=== PATIENT | male | born 1940 | race Caucasian/White ===

== ENCOUNTER 2017-05-12 10:07 | Emergency (ER) | payer MEDICARE, OTHER ==
[2017-05-12] MEDS ORDERED: Sodium Chloride 0.9% 1000 ML 1,000 ML IV STA (10:21)
[2017-05-12 10:22] VITALS: BP 113/59; PULSE 60; O2SAT 94
[2017-05-12] MEDS ORDERED: Sodium Chloride 0.9% 1000 ML 1,000 ML ONE (10:25)
[2017-05-12 10:47] LABS: ANION GAP 16.9 MEQ/L (5-15); BILIRUBIN,TOTAL 0.5 mg/dL (0.2-1.0); Carbon Dioxide 23.2 mEq/L (21-32); MAGNESIUM 2.1 mg/dL (1.8-2.4); Potassium 4.1 mEq/L (3.5-5.1); Total Protein 7.5 gm/dL (6.4-8.2)
[2017-05-12 10:51] LABS: BASOPHIL % 0.3 % (0.0-0.4); Eosinophil % 5.1 % (0.00-5.0); Granulocytes % 49.3 % (36.0-66.0); Lymphocytes % 35.1 % (24.0-44.0); Mean Corpuscular Hemoglobin 30.4 pg (26-32); Mean Platelet Volume 10.7 fl (6-9.5); Monocytes % 10.2 % (0.0-12.0); Platelet Count 211 K/mm3 (150-450); White Blood Count 7.2 K/mm3 (4.0-10.5)
--- NOTE | 2017-05-12 10:55 | ERPHSYRPT ---
- History of Present Illness Time Seen by Provider: 05/12/17 10:52 Source: patient, EMS Exam Limitations: no limitations Patient Subjective Stated Complaint: kareem had syncopal episode at [facility], unsure he he blacked out but he doesnt remember things during but he knows he did not fall Triage Nursing Assessment: pt alert and oriented x3, lung sounds clear, pulses equal bialteral radius, bowel sounds present x4, skin warm dry and intact. no injuries noted Physician History: patient had syncopal episode at [facility], unsure he he blacked out but he does not remember things during but he knows he did not fall, has one episode of nausea en route to ER Timing/Duration: today Associated Symptoms: nausea Allergies/Adverse Reactions: terazosin HCl [From Hytrin] Allergy (Mild, Verified 05/12/17 10:16) Fainting lisinopril Allergy (Verified 05/12/17 10:21) Tuberculin,Old Sk *RETIRED-11/05/12 [Tuberculin,Old Skin Test] Allergy ( Verified 05/12/17 10:16) "DOCTOR SAID MY ARM WOULD FALL OFF". Home Medications: Aspirin 81 mg PO DAILY 06/22/12 [History] Omeprazole 20 mg PO DAILY 06/22/12 [History] Simvastatin 10 mg [Zocor 10MG] 10 mg PO HS 06/22/12 [History] Cholestyramine Light 4 gm [QUESTRAN Light 4 GM Packet] 8 gm PO HS [History] Diphenoxylate HCl/Atropine [Lomotil] 1 udtab PO QIDPRN PRN 10/24/14 [ History] Escitalopram Oxalate 10 mg [Lexapro 10 MG] 10 mg PO HS 10/24/14 [History] Propafenone HCl 150 mg [Rythmol 150 mg] 150 mg PO BID 11/30/14 [History] Finasteride 5 mg [Proscar 5 MG] 5 mg DAILY 05/12/17 [History] Metoprolol Tartrate 25 mg [Lopressor 25MG Tab] 25 mg DAILY 05/12/17 [ History] Hx Tetanus, Diphtheria Vaccination/Date Given: Yes Hx Influenza Vaccination/Date Given: Yes Hx Pneumococcal Vaccination/Date Given: Yes Immunizations Up to Date: Yes - Review of Systems Constitutional: No Fever, No Chills Eyes: No Symptoms Ears, Nose, & Throat: No Symptoms Respiratory: No Cough, No Dyspnea Cardiac: Syncope, No Chest Pain, No Edema Abdominal/Gastrointestinal: Nausea, No Abdominal Pain, No Vomiting, No Diarrhea Genitourinary Symptoms: No Dysuria Musculoskeletal: No Back Pain, No Neck Pain Skin: No Rash Neurological: No Dizziness, No Focal Weakness, No Sensory Changes Psychological: No Symptoms Endocrine: No Symptoms All Other Systems: Reviewed and Negative - Past Medical History Pertinent Past Medical History: Yes Neurological History: TIA ENT History: Cataracts Cardiac History: Arrhythmia, Coronary Artery Disease, High Cholesterol, Hypertension Respiratory History: No Pertinent History Endocrine Medical History: No Pertinent History Musculoskeletal History: Arthritis, Osteoarthritis GI Medical History: GERD, Gallbladder Disease, Irritable Bowel History: No Pertinent History Psycho-Social History: Depression Male Reproductive Disorders: Prostate Problems Other Medical History: KIDNEY STONES . STATED HE HAS NOT HAD TB; 40 YEARS AGO WAS EXPOSED AND TOOK 3 TABLETS EVERY DAY FOR A YEAR. NE KNEE REPLACEMENT. PACEMAKER - Past Surgical History Past Surgical History: Yes Neuro Surgical History: No Pertinent History Cardiac: Cardiac Catheterization, Pacemaker Respiratory: No Pertinent History Gastrointestinal: Cholecystectomy Genitourinary: No Pertinent History Musculoskeletal: Orthopedic Surgery Male Surgical History: No Pertinent History Other Surgical History: SKIN CANCER REMOVED. NE KNEES. PACEMAKER. CATH WITHOUT STENTS - Social History Smoking Status: Former smoker How long have you smoked: 9 Exposure to second hand smoke: No Drug Use: none Patient Lives Alone: No - Nursing Vital Signs Nursing Vital Signs: Initial Vital Signs Temperature 97.8 F 05/12/17 10:08 Pulse Rate 60 05/12/17 10:08 Respiratory Rate 24 05/12/17 10:08 Blood Pressure 113/59 05/12/17 10:08 O2 Sat by Pulse Oximetry 94 L 05/12/17 10:08 Pain Scale Pain Intensity 0 - Physical Exam General Appearance: no apparent distress, alert Eye Exam: PERRL/EOMI, eyes nml inspection Ears, Nose, Throat Exam: normal ENT inspection, TMs normal, pharynx normal, moist mucous membranes Neck Exam: normal inspection, non-tender, supple, full range of motion Respiratory Exam: normal breath sounds, lungs clear, No respiratory distress Cardiovascular Exam: regular rate/rhythm, normal heart sounds, normal peripheral pulses Gastrointestinal/Abdomen Exam: soft, normal bowel sounds, No tenderness, No mass Back Exam: normal inspection, normal range of motion, No CVA tenderness, No vertebral tenderness Extremity Exam: normal inspection, normal range of motion, pelvis stable Neurologic Exam: alert, oriented x 3, cooperative, normal mood/affect, nml cerebellar function, nml station & gait, sensation nml, No motor deficits Skin Exam: normal color, warm, dry, No rash Lymphatic Exam: No adenopathy SpO2: 94 Oxygen Delivery: Room Air - Course Nursing assessment & vital signs reviewed: Yes EKG Interpreted by Me: Sinus Rhythm, Other (paced rhythm) - Radiology Exams Chest X-ray Interpretation: Reviewed by me, Negative Ordered Tests: Active Orders 24 hr Category Date Time Status 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 STAT Care 05/12/17 10:22 Active EKG-ER Only STAT Care 05/12/17 10:21 Active IV Insertion STAT Care 05/12/17 10:26 Active CHEST 1 VIEW (PORTABLE) Stat Exams 05/12/17 10:21 Taken CBC W DIFF Stat Lab 05/12/17 10:15 Completed CMP Stat Lab 05/12/17 10:15 Completed MAGNESIUM Stat Lab 05/12/17 10:15 Completed TROPONIN Q3H Lab 05/12/17 10:15 Received TROPONIN Q3H Lab 05/12/17 13:30 Ordered TROPONIN Q3H Lab 05/12/17 16:30 Ordered TROPONIN Q3H Lab 05/12/17 19:30 Ordered TROPONIN Q3H Lab 05/12/17 22:30 Ordered Medication Summary Discontinued Medications Generic Name Dose Route Start Last Admin Trade Name Celina PRN Reason Stop Dose Admin Sodium Chloride 1,000 mls @ 999 mls/hr 05/12/17 10:21 05/12/17 10:26 Sodium Chloride 0.9% 1000 Ml IV 05/12/17 11:21 999 mls/hr .Q1H1M STA Administration Sodium Chloride Confirm 05/12/17 10:25 Sodium Chloride 0.9% 1000 Ml Administered 05/12/17 10:26 Dose 1,000 mls @ ud .ROUTE .STK-MED ONE Lab/Rad Data: Laboratory Result Diagrams 05/12/17 10:15 05/12/17 10:15 Laboratory Results 05/12/17 05/12/17 Range/Units 10:15 10:15 WBC 7.2 (4.0-10.5) K/mm3 RBC 4.70 (4.1-5.6) M/mm3 Hgb 14.3 (12.5-18.0) gm/dl Hct 43.7 (42-50) % MCV 93.0 (78-100) fl MCH 30.4 (26-32) pg MCHC 32.7 (32-36) g/dl RDW 14.0 (11.5-14.0) % Plt Count 211 (150-450) K/mm3 MPV 10.7 H (6-9.5) fl Gran % 49.3 (36.0-66.0) % Lymphocytes % 35.1 (24.0-44.0) % Monocytes % 10.2 (0.0-12.0) % Eosinophils % 5.1 H (0.00-5.0) % Basophils % 0.3 (0.0-0.4) % Basophils # 0.02 (0-0.4) Sodium 142 (136-145) mEq/L Potassium 4.1 (3.5-5.1) mEq/L Chloride 106 (98-107) mEq/L Carbon Dioxide 23.2 (21-32) mEq/L Anion Gap 16.9 H (5-15) MEQ/L BUN 24 H (9-20) mg/dL Creatinine 1.57 H (0.55-1.30) mg/dl Estimated GFR 46 ML/MIN Glucose 120 H (70-110) MG/DL Calcium 9.0 (8.5-10.1) mg/dL Magnesium 2.1 (1.8-2.4) mg/dL Total Bilirubin 0.50 (0.2-1.0) mg/dL AST 23 (15-37) U/L ALT 30 (12-78) U/L Alkaline Phosphatase 77 (46-116) U/L Serum Total Protein 7.5 (6.4-8.2) gm/dL Albumin 4.0 (3.4-5.0) g/dL - Progress Progress: improved Counseled pt/family regarding: lab results, diagnosis, need for follow-up, rad results - Departure Time of Disposition: 11:27 Departure Disposition: Home Clinical Impression: Syncope and collapse Syncope Qualifiers: Syncope type: unspecified Qualified Code(s): R55 - Syncope and collapse Condition: Stable Critical Care Time: Yes Critical Care Time(excluding separately billable procedures): 30-74 minutes Referrals: ANABELLA GOMEZ [Primary Care Provider] - Additional Instructions: Please follow the instructions given to you. Please take your medication as prescribed if given. If symptoms recur or get worse, come back to the emergency room if you cannot reach your primary care physician, or call your primary care physician for an appointment. Again if your symptoms get worse, come back to the emergency room. Thanks for visiting emergency room, and let us take care of you.
--- NOTE | 2017-05-12 20:27 | XRAY ---
Indication: Syncopal episode. Comparison: November 30, 2014. Portable chest less inflated again without focal infiltrate, consolidation, or large effusion. Heart is not enlarged. Stable left-sided dual-lead pacemaker. Bony thorax intact. Impression: Nonacute chest.
== END 2017-05-12 12:08 | disposition home or self-care (01) ==
LOC: ED 10:07
DX: R55 Syncope and collapse (principal); I25.10 Atherosclerotic heart disease of native coronary artery without angina pectoris; E78.00 Pure hypercholesterolemia, unspecified; I10 Essential (primary) hypertension
CPT/HCPCS: 36000; 36415; 71010; 80053; 83735; 84484; 85025; 93005; 93041; 96360; 99284

== ENCOUNTER 2018-05-01 16:15 | Emergency (ER) | payer MEDICARE, OTHER ==
[2018-05-01] MEDS ORDERED: XYLOCAINE 1% HCL 20 ML MDV ONE (16:50)
[2018-05-01] MEDS ORDERED: Adacel Vial IM ONE ×2 (16:52→17:16)
--- NOTE | 2018-05-01 16:52 | ERPHSYRPT ---
- History of Present Illness Time Seen by Provider: 05/01/18 16:50 Source: patient Patient Subjective Stated Complaint: fish hook L index finger Triage Nursing Assessment: fish hook in L index finger Physician History: fishhook in left index finger today for one hour, mild ache pain, no other injury, bleeding controlled Allergies/Adverse Reactions: terazosin HCl [From Hytrin] Allergy (Mild, Verified 05/12/17 10:16) Fainting lisinopril Allergy (Verified 05/12/17 10:21) Tuberculin,Old Sk *RETIRED-11/05/12 [Tuberculin,Old Skin Test] Allergy ( Verified 05/12/17 10:16) "DOCTOR SAID MY ARM WOULD FALL OFF". Home Medications: Aspirin 81 mg PO DAILY 06/22/12 [History] Omeprazole 20 mg PO DAILY 06/22/12 [History] Simvastatin 10 mg [Zocor 10MG] 10 mg PO HS 06/22/12 [History] Cholestyramine Light 4 gm [QUESTRAN Light 4 GM Packet] 8 gm PO HS [History] Diphenoxylate HCl/Atropine [Lomotil] 1 udtab PO QIDPRN PRN 10/24/14 [ History] Escitalopram Oxalate 10 mg [Lexapro 10 MG] 10 mg PO HS 10/24/14 [History] Propafenone HCl 150 mg [Rythmol 150 mg] 150 mg PO BID 11/30/14 [History] Finasteride 5 mg [Proscar 5 MG] 5 mg DAILY 05/12/17 [History] Metoprolol Tartrate 25 mg [Lopressor 25MG Tab] 25 mg DAILY 05/12/17 [ History] Hx Tetanus, Diphtheria Vaccination/Date Given: No Hx Influenza Vaccination/Date Given: No Hx Pneumococcal Vaccination/Date Given: Yes - Review of Systems Constitutional: No Fever Respiratory: No Dyspnea Cardiac: No Chest Pain - Past Medical History Pertinent Past Medical History: Yes Neurological History: TIA ENT History: Cataracts Cardiac History: Arrhythmia, Coronary Artery Disease, High Cholesterol, Hypertension Respiratory History: No Pertinent History Endocrine Medical History: No Pertinent History Musculoskeletal History: Arthritis, Osteoarthritis GI Medical History: GERD, Gallbladder Disease, Irritable Bowel History: No Pertinent History Psycho-Social History: Depression Male Reproductive Disorders: Prostate Problems Other Medical History: KIDNEY STONES . STATED HE HAS NOT HAD TB; 40 YEARS AGO WAS EXPOSED AND TOOK 3 TABLETS EVERY DAY FOR A YEAR. NE KNEE REPLACEMENT. PACEMAKER - Past Surgical History Past Surgical History: Yes Neuro Surgical History: No Pertinent History Cardiac: Cardiac Catheterization, Pacemaker Respiratory: No Pertinent History Gastrointestinal: Cholecystectomy Genitourinary: No Pertinent History Musculoskeletal: Orthopedic Surgery Male Surgical History: No Pertinent History Other Surgical History: SKIN CANCER REMOVED. NE KNEES. PACEMAKER. CATH WITHOUT STENTS - Social History Smoking Status: Former smoker How long have you smoked: 9 Exposure to second hand smoke: No Drug Use: none Patient Lives Alone: No - Nursing Vital Signs Nursing Vital Signs: Initial Vital Signs Temperature 97.7 F 05/01/18 16:16 Pulse Rate 66 05/01/18 16:16 Respiratory Rate 22 05/01/18 16:16 Blood Pressure 136/81 05/01/18 16:16 Pain Scale Pain Intensity 0 - Physical Exam General Appearance: no apparent distress Respiratory Exam: No respiratory distress Extremity Exam: other (hook in palmar distal left index finger, sen and pulses intact, guillaume, nontender bony finger) Neurologic Exam: alert, oriented x 3, cooperative Skin Exam: warm Oxygen Delivery: Room Air Procedures - Additional Procedures Progress: sterile prep, 1% local lidocaine, fish hook advanced through skin and cut and both ends easily removed - Course Nursing assessment & vital signs reviewed: Yes Ordered Tests: Medication Summary Generic Name Dose Route Start Last Admin Trade Name Freq PRN Reason Stop Dose Admin Cefazolin Sodium/Dextrose 1 gm in 50 mls @ 100 mls/hr 05/01/18 17:00 Kefzol 1 Gm/50 Ml Premix IV 05/01/18 17:29 ONCALLTOOR SHERRILL Discontinued Medications Generic Name Dose Route Start Last Admin Trade Name Freq PRN Reason Stop Dose Admin Diphtheria/Tetanus/Acell Pertussis 0.5 ml 05/01/18 16:52 Adacel Vial IM 05/01/18 16:53 .ONCE ONE Lidocaine HCl Confirm 05/01/18 16:50 Xylocaine 1% Hcl 20 Ml Mdv Administered 05/01/18 16:51 Dose 1 ml .ROUTE .ST-MED ONE - Progress Progress: improved - Departure Time of Disposition: 17:15 Departure Disposition: Home Clinical Impression: Fish hook injury of index finger Qualifiers: Encounter type: initial encounter Laterality: left Qualified Code(s): S69.92XA - Unspecified injury of left wrist, hand and finger(s), initial encounter Condition: Stable Critical Care Time: No Referrals: ANABELLA GOMEZ [Primary Care Provider] - Instructions: Removal of Foreign Body in Skin Additional Instructions: motrin, wound care, keflex, return if worse Prescriptions: Cephalexin Mh 500 mg [Keflex 500 mg] 1 cap PO QID #40 capsule
[2018-05-01] MEDS ORDERED: KEFZOL 1 GM/50 ML PREMIX** 1 GM/50 ML IVPB IV SCH (17:00)
[2018-05-01] MEDS ORDERED: KEFZOL 1 GM/50 ML PREMIX** 1 GM/50 ML IVPB IV STA (17:15)
[2018-05-01] MEDS ORDERED: KEFZOL 1 GM IM ONE (17:17)
[2018-05-01] MEDS ORDERED: KEFZOL 1 GM ONE (17:19)
[2018-05-01 17:42] VITALS: BP 149/89; PULSE 58
[2018-05-01] MEDS ORDERED: STERILE WATER FOR INJECTION 20 ML IJ ONE (22:00)
== END 2018-05-01 17:45 | disposition home or self-care (01) ==
LOC: ED 16:15
DX: S69.92XA Unspecified injury of left wrist, hand and finger(s), initial encounter (principal); W45.8XXA Other foreign body or object entering through skin, initial encounter; W20.8XXA Other cause of strike by thrown, projected or falling object, initial encounter; Y93.89 Activity, other specified; Y92.89 Other specified places as the place of occurrence of the external cause; I10 Essential (primary) hypertension; E78.00 Pure hypercholesterolemia, unspecified; I25.10 Atherosclerotic heart disease of native coronary artery without angina pectoris; K21.9 Gastro-esophageal reflux disease without esophagitis; Z95.0 Presence of cardiac pacemaker; Z86.73 Personal history of transient ischemic attack (TIA), and cerebral infarction without residual deficits; Z79.899 Other long term (current) drug therapy
CPT/HCPCS: 90471; 90715; 96372; 99284; J0690

== ENCOUNTER 2019-04-26 21:34 | Emergency (ER) | payer MEDICARE, OTHER ==
[2019-04-26] MEDS ORDERED: XYLOCAINE 1% HCL 20 ML MDV ONE (22:12)
[2019-04-26] MEDS ORDERED: BACIGUENT PACKET TP ONE (22:14)
[2019-04-26] MEDS ORDERED: XYLOCAINE 1% HCL 20 ML MDV IJ ONE (22:14)
--- NOTE | 2019-04-26 22:14 | ERPHSYRPT ---
- History of Present Illness Time Seen by Provider: 04/26/19 22:05 Source: patient Exam Limitations: no limitations Physician History: 79 y/o right handed white male presents with accidental laceration to right ring finger. 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 tetanus utd. not a lot of pain Timing/Duration: today Quality: painful Severity: mild Location: feet (right hand ring finger) Possible Causes: other (saw injury) Allergies/Adverse Reactions: terazosin HCl [From Hytrin] Allergy (Mild, Verified 04/26/19 22:32) Fainting lisinopril Allergy (Verified 04/26/19 22:32) Tuberculin,Old Sk *RETIRED-11/05/12 [Tuberculin,Old Skin Test] Allergy ( Verified 04/26/19 22:32) "DOCTOR SAID MY ARM WOULD FALL OFF". Home Medications: Aspirin 81 mg PO DAILY 06/22/12 [History] Omeprazole 20 mg PO DAILY 06/22/12 [History] Simvastatin 10 mg [Zocor 10MG] 10 mg PO HS 06/22/12 [History] Cholestyramine Light 4 gm [QUESTRAN Light 4 GM Packet] 8 gm PO HS [History] Diphenoxylate HCl/Atropine [Lomotil] 1 udtab PO QIDPRN PRN 10/24/14 [ History] Escitalopram Oxalate 10 mg [Lexapro 10 MG] 10 mg PO HS 10/24/14 [History] Propafenone HCl 150 mg [Rythmol 150 mg] 150 mg PO BID 11/30/14 [History] Finasteride 5 mg [Proscar 5 MG] 5 mg DAILY 05/12/17 [History] Metoprolol Tartrate 25 mg [Lopressor 25MG Tab] 25 mg DAILY 05/12/17 [ History] Hx Tetanus, Diphtheria Vaccination/Date Given: No Hx Influenza Vaccination/Date Given: No Hx Pneumococcal Vaccination/Date Given: Yes - Review of Systems Constitutional: No Symptoms Eyes: No Symptoms Ears, Nose, & Throat: No Symptoms Respiratory: No Symptoms Cardiac: No Symptoms Abdominal/Gastrointestinal: No Symptoms Genitourinary Symptoms: No Symptoms Musculoskeletal: No Symptoms Skin: Other (laceration to right ring finger) Neurological: No Symptoms Psychological: No Symptoms Endocrine: No Symptoms Hematologic/Lymphatic: No Symptoms Immunological/Allergic: No Symptoms All Other Systems: Reviewed and Negative - Past Medical History Pertinent Past Medical History: Yes Neurological History: TIA ENT History: Cataracts Cardiac History: Arrhythmia, Coronary Artery Disease, High Cholesterol, Hypertension Respiratory History: No Pertinent History Endocrine Medical History: No Pertinent History Musculoskeletal History: Arthritis, Osteoarthritis GI Medical History: GERD, Gallbladder Disease, Irritable Bowel History: No Pertinent History Psycho-Social History: Depression Male Reproductive Disorders: Prostate Problems Other Medical History: KIDNEY STONES . STATED HE HAS NOT HAD TB; 40 YEARS AGO WAS EXPOSED AND TOOK 3 TABLETS EVERY DAY FOR A YEAR. NE KNEE REPLACEMENT. PACEMAKER - Past Surgical History Past Surgical History: Yes Neuro Surgical History: No Pertinent History Cardiac: Cardiac Catheterization, Pacemaker Respiratory: No Pertinent History Gastrointestinal: Cholecystectomy Genitourinary: No Pertinent History Musculoskeletal: Orthopedic Surgery Male Surgical History: No Pertinent History Other Surgical History: SKIN CANCER REMOVED. NE KNEES. PACEMAKER. CATH WITHOUT STENTS - Social History Smoking Status: Former smoker How long have you smoked: 9 Exposure to second hand smoke: No Drug Use: none Patient Lives Alone: No - Nursing Vital Signs Nursing Vital Signs: Initial Vital Signs Temperature 98.4 F 04/26/19 22:20 Pulse Rate 60 04/26/19 22:20 Respiratory Rate 18 04/26/19 22:20 Blood Pressure 143/93 04/26/19 22:20 O2 Sat by Pulse Oximetry 95 04/26/19 22:20 Pain Scale Pain Intensity 2 - Physical Exam General Appearance: no apparent distress, alert Eye Exam: PERRL/EOMI, eyes nml inspection Ears, Nose, Throat Exam: normal ENT inspection, moist mucous membranes Neck Exam: normal inspection, non-tender, supple, full range of motion Respiratory Exam: No chest tenderness Gastrointestinal/Abdomen Exam: No tenderness Back Exam: normal inspection, normal range of motion, No CVA tenderness, No vertebral tenderness Extremity Exam: normal inspection, normal range of motion, pelvis stable Neurologic Exam: alert, oriented x 3, cooperative, 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 nv intact, tendon intact. no fb. no bleeding) Lymphatic Exam: No adenopathy SpO2 Interpretation: normal O2 Delivery: Room Air Procedures - Laceration/Wound Repair Right Medial Finger Wound Location: Right, wrist (4th finger distal) Wound Length (cm): 2 Wound's Depth, Shape: superficial, linear Wound Explored: to base Hibiclens Prep: Yes Anesthesia: local, 1% Lidocaine Volume Anesthetic (ccs): 2 Wound Repaired With: sutures Suture Size/Type: 4-0, prolene Number of Sutures: 5 Layer Closure?: No Progress: 04/26/19 22:50 laceration repair site cleaned, dried. bactracin ointment applied. bandage placed. - Course Nursing assessment & vital signs reviewed: Yes Ordered Tests: Active Orders 24 hr Category Date Time Status Wound Care STAT Care 04/26/19 22:15 Active Medication Summary Discontinued Medications Generic Name Dose Route Start Last Admin Trade Name Freq PRN Reason Stop Dose Admin Bacitracin Zinc 0.9 gm 04/26/19 22:14 Baciguent Packet TP 04/26/19 22:15 STAT ONE Lidocaine HCl Confirm 04/26/19 22:12 Xylocaine 1% Hcl 20 Ml Mdv Administered 04/26/19 22:13 Dose 1 ml .ROUTE .STK-MED ONE Lidocaine HCl 5 ml 04/26/19 22:14 Xylocaine 1% Hcl 20 Ml Mdv IJ 04/26/19 22:15 STAT ONE - Progress Progress: improved Counseled pt/family regarding: diagnosis, need for follow-up - Departure Departure Disposition: Home Clinical Impression: Finger laceration Condition: Stable Critical Care Time: No Referrals: ROX BERG [Primary Care Provider] - Additional Instructions: keep dry for 24 hours. after 24 hours, wash daily and apply antibiotic ointment after washing and drying follow by bandaid. suture removal in 8 to 10 days.
[2019-04-26 22:32] VITALS: O2SAT 95
[2019-04-26] MEDS ORDERED: BACIGUENT PACKET ONE (23:02)
[2019-04-26 23:19] VITALS: BP 174/82; PULSE 72
== END 2019-04-26 23:21 | disposition home or self-care (01) ==
LOC: ED 21:34
DX: S61.214A Laceration without foreign body of right ring finger without damage to nail, initial encounter (principal); W45.8XXA Other foreign body or object entering through skin, initial encounter; W27.8XXA Contact with other nonpowered hand tool, initial encounter; I10 Essential (primary) hypertension; E78.00 Pure hypercholesterolemia, unspecified; I25.10 Atherosclerotic heart disease of native coronary artery without angina pectoris; K21.9 Gastro-esophageal reflux disease without esophagitis; Z79.899 Other long term (current) drug therapy; F32.9 Major depressive disorder, single episode, unspecified; Z86.73 Personal history of transient ischemic attack (TIA), and cerebral infarction without residual deficits; Z87.442 Personal history of urinary calculi; Z95.0 Presence of cardiac pacemaker
CPT/HCPCS: 12001; 99283; A9270-GY